=== PATIENT | male | born 1995 | race Two or more races ===

== ENCOUNTER → 2023-08-31 | Emergency (ER) | payer SELFPAY ==
[~2023-08-31] VITALS: Ht 167.6 cm; Wt 72.0 kg
[2023-08-31 11:26] VITALS: BP 131/92; PULSE 78; RESP 16; O2SAT 97
== END | disposition left against medical advice (07) ==
LOC: ER 11:14
DX: T50.7X1A Poisoning by analeptics and opioid receptor antagonists, accidental (unintentional), initial encounter (principal); Y92.89 Other specified places as the place of occurrence of the external cause; Z53.21 Procedure and treatment not carried out due to patient leaving prior to being seen by health care provider